=== PATIENT | female | born 1965 | race Caucasian/White ===

== ENCOUNTER 2020-01-18 22:23 | Emergency (ER) | payer OTHER ==
[~2020-01-18] VITALS: Ht 165.1 cm; Wt 88.2 kg
[~2020-01-18 22:23] MED LIST: ACETAMINOPHEN-1 EAC1 PO; ANTIVERT25 MG PO; CLIMARA0.0375 MG TRANSDERM; IBUPROFEN 800800 MG PO; LEFLUNOMIDE 1010 MG PO; MOBIC15 MG PO; ONDANSETRON HCL4 M2 PO; ROBAXIN 750 MG750 MG PO; ROBAXIN500 MG PO
[2020-01-18 22:55] LABS: ABSOLUTE BASOPHILS 0.1 thou/uL (0.0-0.2); ABSOLUTE EOSINOPHILS 0.1 thou/uL (0.0-0.7); ABSOLUTE LYMPHOCYTES 5.1 thou/uL (0.8-5.3); ABSOLUTE MONOCYTES 0.5 thou/uL (0.0-1.2); ABSOLUTE NEUTROPHILS 5.9 thou/uL (1.6-8.1); BASOPHILS 1.2 %; EOSINOPHILS 0.5 %; HEMATOCRIT 37.4 % (37.0-47.0); HEMOGLOBIN 12.6 gm/dL (12.0-15.0); LYMPHOCYTES 43.7 %; MCH 27.7 pg (26.0-34.0); MCHC 33.7 g/dL (28.0-37.0); MCV 82.2 fL (80.0-100.0); MONOCYTES 4.1 %; MPV 7.5 fl. (7.2-11.1); NUCLEATED RBCS 0 /100WBC; PLATELET COUNT* 410 thou/uL (150-400); POLYS 50.5 %; RBC 4.55 mil/uL (4.20-5.00); RDW-CV 15.2 % (10.5-14.5); WBC 11.6 thou/uL (4.0-11.0)
[2020-01-18 23:00] LABS: CALCIUM 8.7 mg/dL (8.5-10.1); CREATININE 0.9 mg/dL (0.6-1.3); POTASSIUM 3.2 mmol/L (3.5-5.1)
[2020-01-18 23:04] LABS: ALBUMIN 3.4 g/dL (3.4-5.0); MAGNESIUM 1.6 mg/dL (1.8-2.4); TOTAL BILIRUBIN 0.4 mg/dL (<0.1-1.0); TOTAL PROTEIN 7.1 g/dL (6.4-8.2)
[2020-01-18 23:50] LABS: URINE BILIRUBIN NEGATIVE (Negative); URINE BLOOD NEGATIVE (Negative); URINE CLARITY CLEAR; URINE COLOR STRAW; URINE GLUCOSE-RANDOM TRACE (Negative); URINE KETONES NEGATIVE (Negative); URINE LEUKOCYTES-REFLEX NEGATIVE (Negative); URINE NITRITE-REFLEX NEGATIVE (Negative); URINE PROTEIN NEGATIVE (Negative); URINE SPECIFIC GRAVITY 1.015 (1.005-1.030); URINE UROBILINOGEN 0.2 E.U./dl (0.2-1.0)
[2020-01-18 23:57] LABS: AMP/METHAMP Negative (Negative); BARBITURATES Negative (Negative); BENZODIAZEPINES POSITIVE (Negative); COCAINE Negative (Negative); METHADONE Negative (Negative); OPIATES Negative (Negative); PCP Negative (Negative); THC POSITIVE (Negative)
[2020-01-19] MEDS ORDERED: CARAFATE 1 GM TA1 GM PO (03:16)
[2020-01-19] MEDS ORDERED: PRILOSEC OTC20 MG PO (03:16)
[2020-01-19] MEDS ORDERED: HYDROCODON-ACE1 EAC8 PO (03:16)
[2020-01-19] MEDS ORDERED: ZOFRAN ODT4 MG PO (03:16)
[2020-01-19 03:20] VITALS: BP 158/78
--- NOTE | 2020-01-19 11:38 | EKG ---
[place] [address] ELECTROCARDIOGRAM REPORT Name: DAINA BENOIT Room: [facility]#: [id number] Admission: 01/18/20 Attend Phys: Discharge: 01/19/20 Date of : 63 Date of Service: 01/18/20 225 Report #: [id number] THIS REPORT FOR: //name// [facility] ED Test Date: 2020-01-18 Test Time: 22:51:26 Pat Name: DAINA BENOIT Department: Room: Gender: [employer] Specialist[facility] 1965 Requested By: Esme Prescott Order Number: [id number] MD: Carroll Calabrese Measurements Intervals [place] Rate: 90 P: 42 AR: 185 QRS: 22 QRSD: 74 T: 56 QT: 415 QTc: 508 Interpretive Statements Sinus rhythm Possible left atrial enlargement Borderline prolonged QT interval Compared to ECG 02/22/2017 13:51:22 No significant changes Electronically Signed On 01-19-2020 11:38:38 CDT by Carroll Calabrese [email or web address] <ELECTRONICALLY SIGNED> By: Carroll Calabrese MD, FACC 01/19/20 1138 50 50 Carroll Calabrese MD, [facility] /EPI
== END 2020-01-19 03:20 | disposition home or self-care (01) ==
LOC: M.ERS 22:23
PROVIDERS: Emergency Medicine
DX: K44.9 Diaphragmatic hernia without obstruction or gangrene (principal); E87.6 Hypokalemia; E83.42 Hypomagnesemia; R11.2 Nausea with vomiting, unspecified; G43.909 Migraine, unspecified, not intractable, without status migrainosus; Z88.5 Allergy status to narcotic agent; Z79.899 Other long term (current) drug therapy